=== PATIENT | female | born 1995 | race Two or more races ===

== ENCOUNTER 2019-05-08 23:50 | Emergency (ER) | payer MEDICAID ==
[~2019-05-08] VITALS: Ht 172.7 cm; Wt 61.2 kg
[2019-05-08 23:55] VITALS: BP 118/70
--- NOTE | 2019-05-08 23:55 | NUR ---
ED Nurse Note: pt brought in by [facility]. Pt has been drinking heaily at a green party. pt has omitus all over her and is still vomitting. Bp 118/70, p 85, RR 18. Patient is responsive to painful stimuli. pupil PERRLA.
--- NOTE | 2019-05-08 23:57 | Emergency Room Report ---
History of Present Illness General Chief Complaint: Alcohol Intoxication Source: EMS Present Illness HPI Is a 24-year-old brought in by EMS for alcohol intoxication. She was at a house [employer] and was drinking tequila heavily. She was vomiting and so friends called 911. She had several episode of vomiting on route here. Patient is very intoxicated so unable to get a history from her. History is from EMS. Allergies: Coded Allergies: UNABLE TO ASSESS (Unverified , 05/08/19) Patient History Past Medical History: none, see triage record, old chart reviewed Past Surgical History: none Pertinent Family History: none Social History: Reports: alcohol use; Denies: smoking Last Menstrual Period: UNK Now: No Immunizations: other Reviewed Nursing Documentation: PMH: Agreed; PSxH: Agreed Nursing Documentation-PMH Past Medical History: Deferred Review of Systems All Other Systems: limited - secondary to intoxication Physical Exam Vital Signs Date Time Temp Pulse Resp B/P (MAP) Pulse Ox O2 Delivery O2 Flow Rate FiO2 05/08/19 23:47 82 15 118/74 (89) 100 Room Air Vitals normal Sp02 EP Interpretation: reviewed, normal General Appearance: well appearing, no apparent distress, other - Patient is very intoxicated. Her vomitus reeks of smell of tequila Head: normocephalic, atraumatic Eyes: bilateral eye PERRL, bilateral eye EOMI ENT: hearing grossly normal, normal pharynx Neck: full range of motion, supple, no meningismus Respiratory: chest non-tender, lungs clear, normal breath sounds Cardiovascular #1: regular rate, rhythm, no murmur Gastrointestinal: normal bowel sounds, non tender, no mass, no organomegaly, no bruit, non-distended Musculoskeletal: back normal, normal range of motion Neurologic: grossly normal Psychiatric: mood/affect normal Medical Decision Making Diagnostic Impression: Primary Impression: Acute alcoholic intoxication Qualified Codes: F10.920 - Alcohol use, unspecified with intoxication, uncomplicated ER Course Presents with alcohol intoxication. No evidence of any trauma to warrant x-ray or CT scan. Will discharge home once she is more clinically sober or more awake. Last Vital Signs Date Time Temp Pulse Resp B/P (MAP) Pulse Ox O2 Delivery O2 Flow Rate FiO2 05/08/19 23:47 82 15 118/74 (89) 100 Room Air Status: improved Disposition: HOME, SELF-CARE Condition: Stable Patient Instructions: Alcohol Intoxication, [id number] Additional Instructions: Do not drink to excess. Follow-up with your doctor in 7 days. Return if worse. Maik Hurley MD May 08, 2019 23:57
[2019-05-09 02:00] VITALS: BP 109/73
--- NOTE | 2019-05-09 02:00 | NUR ---
ED Nurse Note: pt in bed with eyes closed. appears to be sleeping. VSS
[2019-05-09 04:08] VITALS: BP 105/72
--- NOTE | 2019-05-09 04:10 | NUR ---
ED Nurse Note: pt in bed resting, eyes closed. VSS
--- NOTE | 2019-05-09 05:05 | NUR ---
ED Nurse Note: pt woke up and requested for beverages. pt cleaned self up in restroom. stated she was able to take and uber home.
[2019-05-09 05:09] VITALS: BP 113/76
--- NOTE | 2019-05-09 05:09 | NUR ---
ER DISCHARGE NOTE: Patient is cleared to be discharged per ERMD, pt is aox4, on room air, with stable vital signs. pt was given dc instructions, pt was able to verbalize understanding, pt id band and iv site removed without complications. pt is able to ambulate with steady gait. pt took all belongings and left via uber that she had called.
== END 2019-05-09 05:09 | disposition home or self-care (01) ==
LOC: EDBD 23:50 → EMR 05-09 02:19
DX: F10.920 Alcohol use, unspecified with intoxication, uncomplicated (principal)
CPT/HCPCS: 36415; 80329; 96361; 96374; 99284; J2405